=== PATIENT | female | born 1980 ===

== ENCOUNTER 2017-09-22 10:51 | Emergency (ER) | payer MEDICAID ==
[2017-09-22 10:52] VITALS: BMI 25.0
--- NOTE | 2017-09-22 11:21 | C.PDOC ---
History Of Present Illness 37 year old female presents to the emergency department with complaints of vaginal discharge for 2 weeks. She states it has an odor and is mildly itchy. Patient believes it is BV, which she has had frequently in the past. Denies any pain but she does complain of dyspareunia. No vaginal bleeding, dysuria, or abdominal pain. Time Seen by Provider: 09/22/17 11:14 Chief Complaint (Nursing): Female Genitourinary History Per: Patient History/Exam Limitations: no limitations Onset/Duration Of Symptoms: Days (x 2 weeks) Current Symptoms Are (Timing): Still Present Past Medical History Reviewed: Historical Data, Nursing Documentation, Vital Signs Vital Signs: Last Vital Signs Temp 97.6 F 09/22/17 11:08 Pulse 60 09/22/17 11:08 Resp 16 09/22/17 11:08 BP 109/70 09/22/17 11:08 Pulse Ox 99 09/22/17 12:31 - Medical History PMH: Asthma Surgical History: No Surg Hx Family History: States: Unknown Family Hx - Social History Hx Tobacco Use: No Hx Alcohol Use: Yes Hx Substance Use: No - Immunization History Hx Influenza Vaccination: No Review Of Systems Gastrointestinal: Negative for: Abdominal Pain Genitourinary: Positive for: Vaginal Discharge (+itchy), Other (dyspareunia). Negative for: Dysuria, Vaginal Bleeding, Pelvic Pain Physical Exam - Physical Exam Appears: Well, Non-toxic, No Acute Distress Skin: Warm, Dry, No Rash Head: Atraumatic, Normacephalic Eye(s): bilateral: Normal Inspection Oral Mucosa: Moist Neck: Normal ROM Chest: Symmetrical Cardiovascular: Rhythm Regular, No Murmur Respiratory: Normal Breath Sounds, No Rales, No Rhonchi, No Wheezing Gastrointestinal/Abdominal: Bowel Sounds (active), Soft, No Tenderness, No Guarding Pelvic: No Vaginal Bleeding, Vaginal Discharge (Thin yellow discharge), No Mass Extremity: Bilateral: Atraumatic, Normal Color And Temperature, Normal ROM Neurological/Psych: Oriented x3, Normal Speech Gait: Steady ED Course And Treatment O2 Sat by Pulse Oximetry: 99 (RA) Pulse Ox Interpretation: Normal Medical Decision Making Medical Decision Making: Impression: Bacterial vaginitis Patient is stable for discharge home. Provided with prescription for Metronidazole gel. Patient given follow up instructions. Instructed to return to ER if symptoms worsen or new symptoms arise. Disposition Counseled Patient/Family Regarding: Diagnosis, Need For Followup - Disposition Disposition: HOME/ ROUTINE Disposition Time: 11:19 Condition: GOOD Additional Instructions: Prescription sent to [facility] pharmacy Insert vaginal cream nightly for 5 days follow up with your cold rolling coordinator Prescriptions: Metronidazole [Metrogel-Vaginal] 1 ea VG HS 5 Days #1 gel Instructions: Bacterial Vaginosis (DC) Forms: [employer] (Kyrgyz) - POA Present On Arrival: None - Clinical Impression Clinical Impression: Bacterial vaginosis - PA / PAIN MEDICINE PHYSICIAN / Resident Statement MD/DO has reviewed & agrees with the documentation as recorded. - Scribe Statement The provider has reviewed the documentation as recorded by the Scribe (Lakisha Villegas) All medical record entries made by the Scribe were at my direction and personally dictated by me. I have reviewed the chart and agree that the record accurately reflects my personal performance of the history, physical exam, medical decision making, and the department course for this patient. I have also personally directed, reviewed, and agree with the discharge instructions and disposition.
[2017-09-22 12:03] VITALS: BP 109/70; PULSE 60; RESP 16; TEMP 97.6; O2SAT 99
== END 2017-09-22 12:18 | disposition home or self-care (01) ==
LOC: C.ER 10:51
DX: N76.0 Acute vaginitis (principal); B96.89 Other specified bacterial agents as the cause of diseases classified elsewhere